=== PATIENT | female | born 1950 | race Caucasian/White ===

== ENCOUNTER 2016-04-14 05:58 | Day surgery (SDC) | payer MEDICARE, SELFPAY | END 2016-04-14 13:45 | disposition home or self-care (01) | LOC: SDC 05:58 | DX: H26.491 Other secondary cataract, right eye (principal); M06.9 Rheumatoid arthritis, unspecified; J44.9 Chronic obstructive pulmonary disease, unspecified; F17.210 Nicotine dependence, cigarettes, uncomplicated; Z79.82 Long term (current) use of aspirin; Z79.899 Other long term (current) drug therapy ==

== ENCOUNTER 2016-05-12 06:05 | Day surgery (SDC) | payer MEDICARE, SELFPAY | END 2016-05-12 13:47 | disposition home or self-care (01) | LOC: SDCH 06:05 | DX: H26.492 Other secondary cataract, left eye (principal); M06.9 Rheumatoid arthritis, unspecified; J44.9 Chronic obstructive pulmonary disease, unspecified; F17.210 Nicotine dependence, cigarettes, uncomplicated; Z87.442 Personal history of urinary calculi; Z79.82 Long term (current) use of aspirin; Z79.899 Other long term (current) drug therapy ==

== ENCOUNTER 2016-08-29 18:11 | Emergency (ER) | payer MEDICARE | END 2016-08-29 18:32 | disposition home or self-care (01) | LOC: ER 18:11 | DX: L60.0 Ingrowing nail (principal); B35.1 Tinea unguium; J44.9 Chronic obstructive pulmonary disease, unspecified; M06.9 Rheumatoid arthritis, unspecified; E78.00 Pure hypercholesterolemia, unspecified; Z87.891 Personal history of nicotine dependence; Z98.51 Tubal ligation status; Z79.899 Other long term (current) drug therapy; Z79.82 Long term (current) use of aspirin ==